=== PATIENT | female | born 1975 | race Caucasian/White ===

== ENCOUNTER → 2017-04-25 | Outpatient (CLI) | payer OTHER ==
[~2017-04-25] MED LIST: BIOT300T2 PO; CYAN100028 PO; MULT1TAB60 PO; OMEP40CA6 PO; OMNIPAQUE 350 MG/ML, 100ML BOTTLE ONE; VITA1TAB19 PO; iron PO
== END | disposition home or self-care (01) ==
LOC: CFH 08:14
PROVIDERS: ATTEND Internal Medicine Infectious Disease
DX: C49.A0 Gastrointestinal stromal tumor, unspecified site (principal); K76.89 Other specified diseases of liver
CPT/HCPCS: 74177; Q9967